=== PATIENT | female | born 1990 | race Caucasian/White ===

== ENCOUNTER 2018-01-20 05:39 | Emergency (ER) | payer SELFPAY ==
[~2018-01-20] VITALS: Ht 170.2 cm; Wt 63.5 kg
--- NOTE | 2018-01-20 05:47 | ED.ADGEN ---
Past History Past Medical History: UTI, Other (BERNARDINO VINCENT MD) Adult General Chief Complaint Chief Complaint Abdominal pain (DIMAS AGUILA MD) Chief Complaint " I woke up with this severe Rt. flank and upper abdomen pain... "... " It is ariadna in my back and radiates around to the front... ".. " I am about 7 weeks ... but the pain is up high... " (BERNARDINO VINCENT MD) [facility] HPI Patient is a 27 year old female who presents with 10 out of 10 right flank pain that radiates to her right upper abdomen. Patient reports she is approximately 7 weeks . Patient has had 6 prior pregnancies and 4 spontaneous miscarriages and 2 live births. Patient states she is Rh-. Patient did have a high-fat meal last night before going to bed. Family history of gallbladder disease with both sisters and mother. Sisters had cholecystectomies age 20's. There is also a history of renal stones with mother. Patient herself has never had renal stones or gallbladder problems. History of bad food intake. . No history of travel. No history of trauma. Patient denies any vaginal discharge or bleeding. No history of STDs. (BERNARDINO VINCENT MD) HPI Patient is a 27 year old female who presents with 10 out of 10 right flank pain that radiates to her right upper abdomen. Patient reports she is approximately 7 weeks . Patient has had 6 prior pregnancies and 4 spontaneous miscarriages and 2 live births. Patient states she is Rh-. Patient did have a high-fat meal last night before going to bed. Family history of gallbladder disease with both sisters and mother. Sisters had cholecystectomies age 20's. There is also a history of renal stones with mother. Patient herself has never had renal stones or gallbladder problems. History of bad food intake. . No history of travel. No history of trauma. Patient denies any vaginal discharge or bleeding. No history of STDs. (DIMAS AGUILA MD) Review of Systems Review of Systems Constitutional: Denies fever or chills [] Eyes: Denies change in visual acuity, redness, or eye pain [] HENT: Denies nasal congestion or sore throat [] Respiratory: Denies cough or shortness of breath [] Cardiovascular: No additional information not addressed in HPI [] GI: Complaints of right flank and right upper quadrant abdominal pain, nausea, vomiting. Denies, bloody stools or diarrhea [] : Denies dysuria or hematuria [] Musculoskeletal: Denies back pain or joint pain [] Integument: Denies rash or skin lesions [] Neurologic: Denies headache, focal weakness or sensory changes [] Endocrine: Denies polyuria or polydipsia [] All other systems were reviewed and found to be within normal limits, except as documented in this note. (BERNARDINO VINCENT MD) Family History Family History Family history of gallstones and renal stones. Both sisters and her mother (BERNARDINO VINCENT MD) Current Medications Current Medications Current Medications Medications (Trade) Dose Ordered Sig/Tanesha Start Time Stop Time Status Last Admin Dose Admin Famotidine (Pepcid Vial) 20 mg 1X ONCE 01/20/18 06:00 01/20/18 06:31 DC 01/20/18 06:18 20 MG Lactated Ringer's 1,000 ml @ 1,000 mls/hr Q1H 01/20/18 05:54 01/20/18 06:53 DC 01/20/18 06:18 1,000 MLS/HR Magnesium Hydroxide (Milk Of Magnesia) 2,400 mg 1X ONCE 01/20/18 07:45 01/20/18 07:46 DC Morphine Sulfate (Morphine 10mg Syringe) 10 mg 1X ONCE 01/20/18 06:00 01/20/18 06:31 DC 01/20/18 06:17 10 MG Ondansetron HCl (Zofran) 4 mg 1X ONCE 01/20/18 06:00 01/20/18 06:31 DC 01/20/18 06:18 4 MG Potassium Chloride (KCl Oral Soln) 40 meq 1X ONCE 01/20/18 07:45 01/20/18 07:46 DC (DIMAS AGUILA MD) Current Medications See nursing for home medications (BERNARDINO VINCENT MD) Allergies Allergies Allergies Coded Allergies Type Severity Reaction Last Updated Verified No Known Drug Allergies 01/20/18 No (DIMAS AGUILA MD) Allergies No known drug allergies (BERNARDINO VINCENT MD) Physical Exam Physical Exam Constitutional: Well developed, well nourished, in acute distress, non-toxic appearance. [] HENT: Normocephalic, atraumatic, bilateral external ears normal, oropharynx moist, no oral exudates, nose normal. [] Eyes: PERRLA, EOMI, conjunctiva normal, no discharge. [] Neck: Normal range of motion, no tenderness, supple, no stridor. [] Cardiovascular: Tachycardia Heart rate regular rhythm, no murmur [] Lungs & Thorax: Bilateral breath sounds equal at apexes with a few scattered wheezes on auscultation [] Abdomen: Bowel sounds decreased, soft, right flank and right upper abdomen tenderness, no masses, no pulsatile masses. [] Rebound to Rt. upper quadrant. Skin: Warm, dry, no erythema, no rash. Tattoos Back: No tenderness, right flank CVA tenderness. [] Right flank CVA tenderness exacerbated with percussion Extremities: No tenderness, no cyanosis, no clubbing, ROM intact, no edema. No psoas sign Neurologic: Alert and oriented X 3, normal motor function, normal sensory function, no focal deficits noted. [] Psychologic: Affect anxious, judgement normal, mood normal. [] (BERNARDINO VINCENT MD) Physical Exam Signs reviewed by me within normal limits Constitutional: Well developed, well nourished, in acute distress, non-toxic appearance. [] HENT: Normocephalic, atraumatic, bilateral external ears normal, oropharynx moist, no oral exudates, nose normal. [] Cardiovascular: Tachycardia Heart rate regular rhythm, no murmur [] Lungs & Thorax: Bilateral breath sounds equal at apexes with a few scattered wheezes on auscultation [] Abdomen: Bowel sounds decreased, soft, right flank and right upper abdomen tenderness, no masses, no pulsatile masses. [] Rebound to Rt. upper quadrant. Patient has a Murcia sign on my exam, no Jung Aguirre sign no McBurney's point tenderness palpation Skin: Warm, dry, no erythema, no rash. Tattoos Back: No tenderness, right flank CVA tenderness. [] Right flank CVA tenderness exacerbated with percussion Extremities: No tenderness, no cyanosis, no clubbing, ROM intact, no edema. No psoas sign Neurologic: Alert and oriented X 3, normal motor function, normal sensory function, no focal deficits noted. [] Psychologic: Affect anxious, judgement normal, mood normal. [] (DIMAS AGUILA MD) Current Patient Data Vital Signs Vital Signs Date Time Temp Pulse Resp B/P (MAP) Pulse Ox O2 Delivery O2 Flow Rate FiO2 01/20/18 05:50 97.7 60 20 100 Room Air (DIMAS AGUILA MD) Lab Results Laboratory Tests Test 01/20/18 05:28 01/20/18 06:10 01/20/18 06:30 POC Urine HCG, Qualitative hcg positive (Negative) Urine Collection Type Unknown Urine Color Yellow Urine Clarity Cloudy Urine pH 7.0 Urine Specific [place] 1.015 Urine Protein Neg (NEG-TRACE) Urine Glucose (UA) Neg mg/dL (NEG) Urine Ketones (Stick) Neg mg/dL (NEG) Urine Blood Neg (NEG) Urine Nitrite Neg (NEG) Urine Bilirubin Neg (NEG) Urine Urobilinogen Dipstick 0.2 mg/dL (0.2 mg/dL) Urine Leukocyte Esterase Trace (NEG) Urine RBC 0 /HPF (0-2) Urine WBC 0 /HPF (0-4) Urine Squamous Epithelial Cells Occ /LPF Urine Amorphous Sediment Present /HPF Urine Bacteria 0 /HPF (0-FEW) Urine Mucus Slight /LPF Urine Opiates Screen Neg (NEG) Urine Methadone Screen Neg (NEG) Urine Barbiturates Neg (NEG) Urine Phencyclidine Screen Neg (NEG) Urine Amphetamine/Methamphetamine Neg (NEG) Urine Benzodiazepines Screen Neg (NEG) Urine Cocaine Screen Neg (NEG) Urine Cannabinoids Screen Neg (NEG) Urine Ethyl Alcohol Neg (NEG) White Blood Count 13.1 x10^3/uL (4.0-11.0) H Red Blood Count 4.41 x10^6/uL (3.50-5.40) Hemoglobin 14.0 g/dL (12.0-15.5) Hematocrit 39.3 % (36.0-47.0) Mean Corpuscular Volume 89 fL (79-100) Mean Corpuscular Hemoglobin 32 pg (25-35) Mean Corpuscular Hemoglobin Concent 36 g/dL (31-37) Red Cell Distribution Width 12.8 % (11.5-14.5) Platelet Count 257 x10^3/uL (140-400) Neutrophils (%) (Auto) 65 % (31-73) Lymphocytes (%) (Auto) 28 % (24-48) Monocytes (%) (Auto) 6 % (0-9) Eosinophils (%) (Auto) 1 % (0-3) Basophils (%) (Auto) 1 % (0-3) Neutrophils # (Auto) 8.5 x10^3uL (1.8-7.7) H Lymphocytes # (Auto) 3.7 x10^3/uL (1.0-4.8) Monocytes # (Auto) 0.8 x10^3/uL (0.0-1.1) Eosinophils # (Auto) 0.1 x10^3/uL (0.0-0.7) Basophils # (Auto) 0.1 x10^3/uL (0.0-0.2) Prothrombin Time 10.4 SEC (9.4-11.4) Prothrombin Time INR 1.0 (0.9-1.1) PTT 23 SEC (23-33) Maternal Serum HCG Beta Subunit 71084 mIU/mL (0-6) H Sodium Level 137 mmol/L (136-145) Potassium Level 2.6 mmol/L (3.5-5.1) *L Chloride Level 101 mmol/L (98-107) Carbon Dioxide Level 19 mmol/L (21-32) L Anion Gap 17 (6-14) H Blood Urea Nitrogen 12 mg/dL (7-20) Creatinine 0.7 mg/dL (0.6-1.0) Estimated GFR (Cockcroft-Gault) 101.1 Glucose Level 98 mg/dL (70-99) Calcium Level 9.9 mg/dL (8.5-10.1) Total Bilirubin 0.3 mg/dL (0.2-1.0) Direct Bilirubin 0.1 mg/dL (0.0-0.2) Aspartate Amino Transferase (AST) 13 U/L (15-37) L Alanine Aminotransferase (ALT) 22 U/L (14-59) Alkaline Phosphatase 56 U/L (46-116) Total Protein 8.3 g/dL (6.4-8.2) H Albumin 4.2 g/dL (3.4-5.0) Lipase 211 U/L (73-393) (DIMAS AGUILA MD) Lab Results Microbiology 01/20/18 Urine Culture - Final, Complete 01/20/18 Urine Culture Result 1 (JATIN) - Final, Complete (BERNARDINO VINCENT MD) EKG EKG [] (BERNARDINO VINCENT MD) Radiology/Procedures Radiology/Procedures US pending at shift change. [] (BERNARDINO VINCENT MD) Course & Med Decision Making Course & Med Decision Making Pertinent Labs and Imaging studies reviewed. (See chart for details). Check out to Dr. Aguila - labs and US pending at shift change. Suspect biliary colic. [] (BERNARDINO VINCENT MD) Course & Med Decision Making Patient is a pleasant 27-year-old female coming to the emergency department with right upper quadrant abdominal pain. Acute pancreatitis. Appendicitis. Acute hepatitis. Peptic ulcer disease. Nonulcer dyspepsia. Irritable bowel disease. Functional gallbladder disorder. Sphincter of Oddi dysfunction. Diseases of the right kidney. Right-sided pneumonia. Lwzw-Ywgw-Thtxwq syndrome Subhepatic or intraabdominal abscess. Perforated viscus. Cardiac ischemia. Black spider envenomation UTI, pyonephritis, kidney stone, abdominal aneurysm, Cholecystitis Cholelithiasis Ascending cholangitis Differential diagnosis I considered upon arrival patient has significant tenderness to palpation on the right upper quadrant. She has some voluntary guarding and is so severe. She is very in couple upon arrival received fluids antiemetics and pain medications. I did not give her any thing for anxiety because of her . I concern is with ectopic as she not had an ultrasound at this time patient's ultrasound at the bedside by internal medicine veterinary technician read by me read by radiologyand IUP with a quantitative hCG greater than 78, 000. Patient also had an OF THE RIGHT UPPER QUADRANT WHICH DID DEMONSTRATE A VERY LARGE GALLSTONE WITHIN THE GALLBLADDER NECK. THERE IS NO PERICHOLECYSTIC FLUID there is no thickening of the gallbladder wall greater than 3 mm, did the common bile duct is normal in size, unfortunate she has a sonographic [place]cia 's with a clear large stone within the gallbladder neck. With an elevated white blood cell count of 13.1 the concern is that this may be representing early status. Patient's LFTs and lipase as well as bilirubin are normal. My concern is with her having intractable abdominal pain she may develop this in the future. This reports her at high risk as she is Rh- she is not received program with this particular and she has no BLOCK SAW OPERATOR at this time as she is new to the area from [facility]. Technology Engineer note: Dr. Nicholson general chocolate finisher called at of the service service called at 8:10 AM Consult called back at service called back at 8:11 AM Discussed the case I presented and they agreed with admission. Asked me to admit to BLOCK SAW OPERATOR service for pain management and he'll evaluate her later today for possible cholecystectomy. Technology Engineer note: Drr. Moore Technology Engineer called at of the service service called at 8:12 AM Consult called back at 8:12 AM Discussed the case I presented and they agreed with admission. Time of acceptance 8:13 AM I told hvac refrigeration technician and will go ahead and place a general surgery consult note in the computer so he had the order in place. Impression, symptomatic cholelithiasis and threatened miscarriage. "I have assessed this patient clinically and believe that their condition requires an admission to the hospital. After consulting the admitting physician about this case, they have asked that I admit this patient to their service as an inpatient based on the clinical presentation and my impression." Transferred to [facility]. (DIMAS AGUILA MD) Final Impression Final Impression 1. Right flank and upper abdomen pain[] 2. Gravid 7 weeks 3. Leukocytosis 4. Hypokalemia Problems: (BERNARDINO VINCENT MD) Final Impression Cholelithiasis symptomatic with mildly elevated white blood cell count, she is also Problems: (DIMAS AGUILA MD) Dragon Disclaimer Dragon Disclaimer This electronic medical record was generated, in whole or in part, using a voice recognition dictation system. (BERNARDINO VINCENT MD) BERNARDINO VINCENT MD Jan 20, 2018 05:47 DIMAS AGUILA MD Jan 20, 2018 08:22
[2018-01-20 05:50] VITALS: BP 107/64
[2018-01-20] MEDS ORDERED: IV RINGERS SOLUTION,LACTATED 1,000 ML IV SCH (05:54)
[2018-01-20] MEDS ORDERED: MORPHINE SULFATE 10 MG/ML SYRINGE. SQ ONE (06:00)
[2018-01-20] MEDS ORDERED: FAMOTIDINE 20 MG/2 ML VIAL IVP ONE (06:00)
[2018-01-20] MEDS ORDERED: ONDANSETRON PF 4 MG/2 ML VIAL. IV ONE (06:00)
[2018-01-20 06:53] LABS: BASO # 0.1 x10^3/uL (0.0-0.2); BASO % 1 % (0-3); EOS # 0.1 x10^3/uL (0.0-0.7); EOS % 1 % (0-3); HEMATOCRIT 39.3 % (36.0-47.0); LYMPH # 3.7 x10^3/uL (1.0-4.8); LYMPH % 28 % (24-48); MEAN CORPUSCULAR HEMOGLOBIN 32 pg (25-35); MEAN CORPUSCULAR HGB CONC 36 g/dL (31-37); MEAN CORPUSCULAR VOLUME 89 fL (79-100); MONO # 0.8 x10^3/uL (0.0-1.1); MONO % 6 % (0-9); NEUT # 8.5 x10^3uL (1.8-7.7); NEUT % 65 % (31-73); PLATELET COUNT 257 x10^3/uL (140-400); RED BLOOD COUNT 4.41 x10^6/uL (3.50-5.40); RED CELL DISTRIBUTION WIDTH 12.8 % (11.5-14.5); WHITE BLOOD COUNT 13.1 x10^3/uL (4.0-11.0)
[2018-01-20 06:54] LABS: AMORPHOUS SEDIMENT,UR PRESENT /HPF; BACTERIA,URINE 0 /HPF (0-FEW); BILIRUBIN,URINE NEG (NEG); CLARITY,URINE CLOUDY; COLOR,URINE YELLOW; GLUCOSE,URINE NEG (NEG); NITRITE,URINE NEG (NEG); RBC,URINE 0 /HPF (0-2); SQUAMOUS EPITHELIAL CELL,UR OCC /LPF; UROBILINOGEN,URINE 0.2 mg/dL (0.2 mg/dL); WBC,URINE 0 /HPF (0-4)
[2018-01-20 06:56] LABS: BARBITURATES NEG (NEG); BENZODIAZEPINES NEG (NEG); CANNABINOIDS NEG (NEG); COCAINE NEG (NEG); METHADONE NEG (NEG); OPIATES NEG (NEG); PHENCYCLIDINE NEG (NEG)
[2018-01-20 06:57] LABS: AMPHETAMINE/METHAMPHETAMINE NEG (NEG)
[2018-01-20 06:59] LABS: ALBUMIN 4.2 g/dL (3.4-5.0); CALCIUM 9.9 mg/dL (8.5-10.1); CREATININE 0.7 mg/dL (0.6-1.0); DIRECT BILIRUBIN 0.1 mg/dL (0.0-0.2); GFR 101.1; TOTAL BILIRUBIN 0.3 mg/dL (0.2-1.0); TOTAL PROTEIN 8.3 g/dL (6.4-8.2)
[2018-01-20 07:02] LABS: POTASSIUM 2.6 mmol/L (3.5-5.1)
[2018-01-20] MEDS ORDERED: POTASSIUM CHLORIDE 20 MEQ/15 ML ORAL LIQUID. PO ONE (07:45)
[2018-01-20] MEDS ORDERED: MAGNESIUM HYDROXIDE 2,400 MG/30 ML ORAL.SUSP. PO ONE (07:45)
--- NOTE | 2018-01-20 08:26 | RAD ---
Ultrasound of the abdomen limited. History: Right flank pain, right upper quadrant pain, 7 weeks , vomiting Ultrasound was used to evaluate the liver, gallbladder and right upper quadrant. Pancreas was normal in appearance. Proximal aorta and vena cava are unremarkable. Liver is normal in size and appearance. Right kidney is 11.4 cm in length. There is minimal prominence of the right renal pelvis without other evidence of hydronephrosis. There is a gallstone impacted in the neck of the gallbladder. The gallbladder is distended with mild gallbladder wall thickening. Common duct was normal measuring 4 mm. Impression: 1. Cholelithiasis with a gallstone impacted in the neck of the gallbladder, mild gallbladder wall thickening suggesting cholecystitis.
--- NOTE | 2018-01-20 08:30 | RAD ---
Symmetrical ultrasound less than 14 weeks transabdominal and transvaginal imaging. History: Right flank pain right upper quadrant pain, early Transabdominal ultrasound showed an intrauterine gestation. Transvaginal imaging was performed for further evaluation. There are small nabothian cysts at the cervix. There is an intrauterine gestation. Uterus measured 11.6 x 10.5 x 7 cm. Cervix was 4 cm in length. [place]-rump length of the fetus is 1.4 cm corresponding to 7 weeks 5 days gestational age. There is a oval gestational sac. There is a small subchorionic hemorrhage. heartbeat was noted with a rate of 1 47 bpm. Maternal right ovary was normal measuring 3.4 x 2.2 x 2.3 cm. There is a 1.7 cm cyst or follicle at the margin of the right ovary. Left ovary was normal measuring 3.9 x 1.9 x 2.7 cm. There are prominent vessels in the adnexa. Impression: 1. Viable intrauterine 7 weeks 3 days gestational age by crown-rump length 2. Estimated date of delivery September 05, 2018
[2018-01-20] MEDS ORDERED: POTASSIUM CHLORIDE 20 MEQ TABLET.ER. PO ONE (09:00)
== END 2018-01-20 08:52 | disposition short-term general hospital (02) ==
LOC: ER 05:39
DX: O99.611 Diseases of the digestive system complicating pregnancy, first trimester (principal); K80.20 Calculus of gallbladder without cholecystitis without obstruction; E87.6 Hypokalemia; D72.829 Elevated white blood cell count, unspecified; Z3A.01 Less than 8 weeks gestation of pregnancy
CPT/HCPCS: 36415; 76705; 76801; 76817; 80048; 80076; 80307; 81001; 81025; 83690; 84702; 85025; 85610; 85730; 86900; 86901; 87086; 96361; 96372; 96374; 96375; 99285; J2270; J2405; J7120; S0028; G0479

== ENCOUNTER 2018-01-25 23:01 | Emergency (ER) | payer OTHER ==
[~2018-01-25] VITALS: Ht 170.2 cm; Wt 63.5 kg
[2018-01-25] MEDS: MORPHINE SULFATE 10 MG/ML SYRINGE. SQ ONE ×2 (02:50→23:30)
--- NOTE | 2018-01-25 23:10 | ED.ADGEN ---
Past History Past Medical History: Gallstones, UTI, Other Past Surgical History: Cholecystectomy, Other Alcohol Use: None Drug Use: None Adult General Chief Complaint Chief Complaint " I just been feeling bad all day.. I am off on my intake,.... I did feel like I was having some fever and chills...".." a lot of nausea..." HPI HPI Patient is a 27 year old female who presents with above hx and complaints nausea , and epigastric abd. pain. Pt. is 8 weeks gravid. S/P Cholecystectomy on 01/[address] Nicholson at [facility], after ED eval. on 01/20 here for abd. pain. Pt. suture lines are stable and no findings of inflammation. . No bad food, but has increased her diet and expanded food types. Pt. denies any pelvic pain or vaginal bleeding. Some complaints of mild dysuria. Review of Systems Review of Systems Constitutional: subjective complaints of fever Eyes: Denies change in visual acuity, redness, or eye pain [] HENT: Denies nasal congestion or sore throat [] Respiratory: Denies cough or shortness of breath [] Cardiovascular: No additional information not addressed in HPI [] GI: mild up epigastric abdominal pain, nausea. No current vomiting, bloody stools or diarrhea [] : Denies dysuria or hematuria [] Musculoskeletal: Denies back pain or joint pain [] Integument: Denies rash or skin lesions [] Neurologic: Denies headache, focal weakness or sensory changes [] Endocrine: Denies polyuria or polydipsia [] All other systems were reviewed and found to be within normal limits, except as documented in this note. Family History Family History Gallstones Current Medications Current Medications Current Medications Medications (Trade) Dose Ordered Sig/Tanesha Start Time Stop Time Status Last Admin Dose Admin Cephalexin HCl (Keflex) 500 mg 1X ONCE 01/26/18 02:30 01/26/18 02:31 DC 01/26/18 02:50 500 MG Famotidine (Pepcid Vial) 20 mg 1X ONCE 01/25/18 23:30 01/25/18 23:31 DC 01/26/18 00:00 20 MG Lactated Ringer's 1,000 ml @ 1,000 mls/hr Q1H 01/25/18 23:30 01/26/18 00:29 DC 01/25/18 23:30 1,000 MLS/HR Magnesium Hydroxide (Milk Of Magnesia) 2,400 mg 1X ONCE 01/25/18 23:30 01/25/18 23:31 DC 01/26/18 00:00 2,400 MG Morphine Sulfate (Morphine 10mg Syringe) 10 mg 1X ONCE 01/25/18 23:30 01/25/18 23:31 DC 01/25/18 02:50 10 MG Ondansetron HCl (Zofran) 4 mg 1X ONCE 01/25/18 23:30 01/25/18 23:31 DC 01/25/18 23:59 4 MG See Nursing for home meds. Allergies Allergies Allergies Coded Allergies Type Severity Reaction Last Updated Verified No Known Drug Allergies 01/20/18 No Physical Exam Physical Exam Constitutional: Well developed, well nourished, mild distress, non-toxic appearance. [] HENT: Normocephalic, atraumatic, bilateral external ears normal, oropharynx moist, no oral exudates, nose normal. [] Eyes: PERRLA, EOMI, conjunctiva normal, no discharge. [] Neck: Normal range of motion, no tenderness, supple, no stridor. [] Cardiovascular:Heart rate regular rhythm, no murmur [] Lungs & Thorax: Bilateral breath sounds clear to auscultation [] Abdomen: Bowel sounds normal, soft, mild epigastric tenderness, no masses, no pulsatile masses. Suture lines stable. Gravid. Declined pelvic exam at this time. Distended. Skin: Warm, dry, no erythema, no rash. [] Back: No tenderness, no CVA tenderness. [] Extremities: No tenderness, no cyanosis, no clubbing, ROM intact, no edema. No psoas. Neurologic: Alert and oriented X 3, normal motor function, normal sensory function, no focal deficits noted. [] Psychologic: Affect anxious, judgement normal, mood normal. [] Current Patient Data Lab Results Laboratory Tests Test 01/25/18 23:55 01/25/18 23:59 White Blood Count 10.3 x10^3/uL (4.0-11.0) Red Blood Count 4.47 x10^6/uL (3.50-5.40) Hemoglobin 14.4 g/dL (12.0-15.5) Hematocrit 40.4 % (36.0-47.0) Mean Corpuscular Volume 90 fL (79-100) Mean Corpuscular Hemoglobin 32 pg (25-35) Mean Corpuscular Hemoglobin Concent 36 g/dL (31-37) Red Cell Distribution Width 12.8 % (11.5-14.5) Platelet Count 173 x10^3/uL (140-400) Neutrophils (%) (Auto) 72 % (31-73) Lymphocytes (%) (Auto) 20 % (24-48) L Monocytes (%) (Auto) 7 % (0-9) Eosinophils (%) (Auto) 1 % (0-3) Basophils (%) (Auto) 1 % (0-3) Neutrophils # (Auto) 7.4 x10^3uL (1.8-7.7) Lymphocytes # (Auto) 2.1 x10^3/uL (1.0-4.8) Monocytes # (Auto) 0.7 x10^3/uL (0.0-1.1) Eosinophils # (Auto) 0.1 x10^3/uL (0.0-0.7) Basophils # (Auto) 0.1 x10^3/uL (0.0-0.2) Maternal Serum HCG Beta Subunit 695028 mIU/mL (0-6) H Sodium Level 135 mmol/L (136-145) L Potassium Level 3.6 mmol/L (3.5-5.1) Chloride Level 100 mmol/L (98-107) Carbon Dioxide Level 24 mmol/L (21-32) Anion Gap 11 (6-14) Blood Urea Nitrogen 6 mg/dL (7-20) L Creatinine 0.6 mg/dL (0.6-1.0) Estimated GFR (Cockcroft-Gault) 120.8 Glucose Level 84 mg/dL (70-99) Calcium Level 9.2 mg/dL (8.5-10.1) Total Bilirubin 0.5 mg/dL (0.2-1.0) Direct Bilirubin 0.1 mg/dL (0.0-0.2) Aspartate Amino Transferase (AST) 29 U/L (15-37) Alanine Aminotransferase (ALT) 55 U/L (14-59) Alkaline Phosphatase 73 U/L (46-116) Troponin I Quantitative < 0.017 ng/mL (0-0.055) Total Protein 7.8 g/dL (6.4-8.2) Albumin 3.7 g/dL (3.4-5.0) Lipase 148 U/L (73-393) Influenza Type A (Rapid) Negative (NEGATIVE) Influenza Type B (Rapid) Negative (NEGATIVE) Urine Collection Type Unknown Urine Color Yellow Urine Clarity Hazy Urine pH 6.0 Urine Specific [place] <=1.005 Urine Protein Neg (NEG-TRACE) Urine Glucose (UA) Neg mg/dL (NEG) Urine Ketones (Stick) Trace mg/dL (NEG) Urine Blood Neg (NEG) Urine Nitrite Neg (NEG) Urine Bilirubin Neg (NEG) Urine Urobilinogen Dipstick 0.2 mg/dL (0.2 mg/dL) Urine Leukocyte Esterase Trace (NEG) Urine RBC Occ /HPF (0-2) Urine WBC 1-4 /HPF (0-4) Urine Squamous Epithelial Cells Mod /LPF Urine Bacteria Few /HPF (0-FEW) Urine Opiates Screen Neg (NEG) Urine Methadone Screen Neg (NEG) Urine Barbiturates Neg (NEG) Urine Phencyclidine Screen Neg (NEG) Urine Amphetamine/Methamphetamine Neg (NEG) Urine Benzodiazepines Screen Neg (NEG) Urine Cocaine Screen Neg (NEG) Urine Cannabinoids Screen Neg (NEG) Urine Ethyl Alcohol Neg (NEG) EKG EKG [] Radiology/Procedures Radiology/Procedures Reviewed US results from 01/20. IUP. Gall stone and dilated duct.[] Course & Med Decision Making Course & Med Decision Making Pertinent Labs and Imaging studies reviewed. (See chart for details). Discussed presentation, testing and tx plan with Dr. Mirza. Return to clear fluid diet. Advance diet very slowly. Push frequent fluids. Take tylenol for pain. Keflex 500 three times a day x 7 days. Keep follow up with Surgery- . Keep followup with OB. Return if any concerns. Followup all labs and pending UA culture with OB and Surgery. Return if any concerns. [] Final Impression Final Impression 1. Nausea 2. Abdomen Pain 3. Gravid[]-8 weeks 4. Hx. of cholecystectomy for gallstones on 01/21. 5. UTI Problems: Dragon Disclaimer Dragon Disclaimer This electronic medical record was generated, in whole or in part, using a voice recognition dictation system. BERNARDINO VINCENT MD 16, 2018 23:09
[2018-01-25] MEDS ORDERED: ONDANSETRON PF 4 MG/2 ML VIAL. IV ONE (23:30)
[2018-01-25] MEDS ORDERED: MAGNESIUM HYDROXIDE 2,400 MG/30 ML ORAL.SUSP. PO ONE (23:30)
[2018-01-25] MEDS ORDERED: FAMOTIDINE 20 MG/2 ML VIAL IVP ONE (23:30)
[2018-01-25] MEDS ORDERED: IV RINGERS SOLUTION,LACTATED 1,000 ML IV SCH (23:30)
[2018-01-26 00:24] LABS: ALBUMIN 3.7 g/dL (3.4-5.0); CALCIUM 9.2 mg/dL (8.5-10.1); CREATININE 0.6 mg/dL (0.6-1.0); DIRECT BILIRUBIN 0.1 mg/dL (0.0-0.2); GFR 120.8; POTASSIUM 3.6 mmol/L (3.5-5.1); TOTAL BILIRUBIN 0.5 mg/dL (0.2-1.0); TOTAL PROTEIN 7.8 g/dL (6.4-8.2)
[2018-01-26 00:32] LABS: BASO # 0.1 x10^3/uL (0.0-0.2); BASO % 1 % (0-3); EOS # 0.1 x10^3/uL (0.0-0.7); EOS % 1 % (0-3); HEMATOCRIT 40.4 % (36.0-47.0); HEMOGLOBIN 14.4 g/dL (12.0-15.5); INFLUENZA A PATIENT NEGATIVE (NEGATIVE); INFLUENZA B PATIENT NEGATIVE (NEGATIVE); LYMPH # 2.1 x10^3/uL (1.0-4.8); LYMPH % 20 % (24-48); MEAN CORPUSCULAR HEMOGLOBIN 32 pg (25-35); MEAN CORPUSCULAR HGB CONC 36 g/dL (31-37); MEAN CORPUSCULAR VOLUME 90 fL (79-100); MONO # 0.7 x10^3/uL (0.0-1.1); MONO % 7 % (0-9); NEUT # 7.4 x10^3uL (1.8-7.7); NEUT % 72 % (31-73); PLATELET COUNT 173 x10^3/uL (140-400); RED BLOOD COUNT 4.47 x10^6/uL (3.50-5.40); RED CELL DISTRIBUTION WIDTH 12.8 % (11.5-14.5); WHITE BLOOD COUNT 10.3 x10^3/uL (4.0-11.0)
[2018-01-26 01:51] LABS: BACTERIA,URINE FEW /HPF (0-FEW); BILIRUBIN,URINE NEG (NEG); CLARITY,URINE HAZY; COLOR,URINE YELLOW; GLUCOSE,URINE NEG (NEG); NITRITE,URINE NEG (NEG); RBC,URINE OCC /HPF (0-2); SQUAMOUS EPITHELIAL CELL,UR MOD /LPF; UROBILINOGEN,URINE 0.2 mg/dL (0.2 mg/dL)
[2018-01-26 01:54] LABS: BARBITURATES NEG (NEG); BENZODIAZEPINES NEG (NEG); CANNABINOIDS NEG (NEG); COCAINE NEG (NEG); METHADONE NEG (NEG); OPIATES NEG (NEG); PHENCYCLIDINE NEG (NEG)
[2018-01-26] MEDS ORDERED: CEPH-264 PO (02:07)
[2018-01-26 02:08] LABS: AMPHETAMINE/METHAMPHETAMINE NEG (NEG)
[2018-01-26] MEDS ORDERED: CEPHALEXIN 250 MG CAPSULE PO ONE (02:30)
[2018-01-26 02:45] VITALS: BP 115/77
== END 2018-01-26 02:55 | disposition home or self-care (01) ==
LOC: ER 23:01
DX: O23.41 Unspecified infection of urinary tract in pregnancy, first trimester (principal); Z3A.08 8 weeks gestation of pregnancy; Z90.49 Acquired absence of other specified parts of digestive tract
CPT/HCPCS: 36415; 80048; 80076; 80307; 81001; 83690; 84484; 84702; 85025; 87040; 87086; 87804; 96361; 96372; 96374; 96375; 99284; J2270; J2405; J7120; G0479

== ENCOUNTER → 2020-04-23 | Outpatient (CLI) | payer MEDICAID, OTHER ==
[~2020-04-23] MED LIST: CEPH-264 PO
--- NOTE | 2020-04-23 12:46 | RAD ---
EXAM: Ultrasound OB Greater than 14 weeks INDICATION: Reason: ROUTINE SURVEY, UTERINE SIZE DISCREPANCY / Spl. Instructions: / History: TECHNIQUE: Real-time obstetrical ultrasound was performed with permanent freeze-frame documentation. COMPARISON: First of June OB ultrasound of 01/20/2018 FINDINGS: POSITION: Cephalic HEART RATE: 1 31 bpm ROHINI: Normal PLACENTA: Anterior. There is some appear low-lying. CERVICAL LENGTH: 3.4 cm MATERNAL UTERUS: Unremarkable. MATERNAL ADNEXA: Normal left ovary. Right ovary not well seen. No adnexal mass noted. No pelvic free fluid. AGE/DATES: Gestational Age by LMP: 19 weeks 1 day Gestation Age by US: 19 weeks 1 day EDC by LMP: 09/16/2020 EDC by US: 09/16/2020 WEIGHT: 284 grams +/- 42 grams PERCENTILE WEIGHT: Not estimated BIOMETRIC PARAMETERS: BPD: 4.4 cm corresponding with 19 weeks 1 day HC: 16.3 cm corresponding with 19 weeks 0 days AC: 14.2 cm corresponding with 19 weeks 4 days FL: 2.9 cm corresponding with 19 weeks 0 days ANATOMY: CARDIAC: Normal four chamber heart. Normal right and left ventricular outflow tracts. UMBILICAL CORD: Normal 3 vessel cord. Normal cord insertion. BRAIN: Unremarkable. NOSE/LIPS: Unremarkable. SPINE: Unremarkable. EXTREMITIES: Unremarkable. STOMACH: Unremarkable. KIDNEYS: Unremarkable. BLADDER: Unremarkable. IMPRESSION: Normal OB ultrasound demonstrating a single viable fetus in cephalic position. Estimated gestational age of 19 weeks 1 day and EDC of September 16, 2020. Electronically signed by: Leonila Ivan MD (04/23/2020 12:43 PM) [id number]
== END ==
LOC: US 09:42
PROVIDERS: ATTEND Obstetrics & Gynecology
DX: O26.842 Uterine size-date discrepancy, second trimester (principal); Z3A.19 19 weeks gestation of pregnancy
CPT/HCPCS: 76805

== ENCOUNTER → 2020-06-22 | Outpatient (CLI) | payer OTHER ==
[2020-06-22 09:39] LABS: BASO # 0.1 x10^3/uL (0.0-0.2); BASO % 1 % (0-3); EOS # 0.1 x10^3/uL (0.0-0.7); EOS % 1 % (0-3); HEMATOCRIT 37.2 % (36.0-47.0); HEMOGLOBIN 12.6 g/dL (12.0-15.5); LYMPH # 2.5 x10^3/uL (1.0-4.8); LYMPH % 27 % (24-48); MEAN CORPUSCULAR HEMOGLOBIN 31 pg (25-35); MEAN CORPUSCULAR HGB CONC 34 g/dL (31-37); MEAN CORPUSCULAR VOLUME 93 fL (79-100); MONO # 0.6 x10^3/uL (0.0-1.1); MONO % 6 % (0-9); NEUT % 65 % (31-73); PLATELET COUNT 167 x10^3/uL (140-400); RED BLOOD COUNT 4.02 x10^6/uL (3.50-5.40); RED CELL DISTRIBUTION WIDTH 12.4 % (11.5-14.5); WHITE BLOOD COUNT 9.3 x10^3/uL (4.0-11.0)
== END | disposition home or self-care (01) ==
LOC: LAB 09:08
PROVIDERS: ATTEND Obstetrics & Gynecology
DX: O09.90 Supervision of high risk pregnancy, unspecified, unspecified trimester (principal)
CPT/HCPCS: 36415; 82950; 85025; 86850; 86900; 86901; J2791